=== PATIENT | female | born 1995 | race Two or more races ===

== ENCOUNTER 2018-01-27 19:18 | Observation (INO) | payer SELFPAY ==
[~2018-01-27] VITALS: Ht 160 cm; Wt 68.0 kg
[2018-01-27] MEDS: metroNIDAZOLE 500 MG TAB PO STA ×2 (20:29→21:12)
== END 2018-01-27 21:23 | disposition home or self-care (01) | DRG 781 ==
LOC: LDRP 19:18
PROVIDERS: ADMIT Specialist; ATTEND Specialist
DX: O23.593 Infection of other part of genital tract in pregnancy, third trimester (principal); B96.89 Other specified bacterial agents as the cause of diseases classified elsewhere; O42.913 Preterm premature rupture of membranes, unspecified as to length of time between rupture and onset of labor, third trimester; Z3A.29 29 weeks gestation of pregnancy
CPT/HCPCS: 59025; 81002; 87070; 87210; 87491; 87591; G0378